=== PATIENT | male | born 1985 | race Caucasian/White ===

== ENCOUNTER → 2024-09-20 | Outpatient (CLI) | payer OTHER, SELFPAY ==
--- OUTSIDE RECORDS SUMMARY | 2024-09-20 06:57 | XMS RPT_ITS | CCD ---
Author Organization [facility] [employer] [facility] Care Team Providers Care Unemployment Specialist Name Role Phone Ramana Ramírez Referring Unavailable Ramana Ramírez Attending Unavailable Problems Problem Classification Problem Date Documented Da te Episodic/Chronic Other lower respiratory disease (1 source) Chest pain on breathing; Translations: [Chest pain on breathing] Onset: 06-07-2024 Episodic Encounters Encounter Date Encounter Type Care Provider Facility Start: 06-02-2024 ambulatory Ramana Ramírez Faci lity:[facility] Payers Date Payer Category Payer Self-pay 2024 Unknown [id number] Unknown [id number] Summary Purpose Family History No Family History Records Found Advance Directives No Advanced Directives Records Found Additional Source Comments (unrecognized sect ion and content) No Status Records Found INFORMATION SOURCE (unrecogn ized section and content) DATE CREATED AUTHOR 06/08/2024 [facility] FOR RECORDS PERTAINING TO PATIENTS WHO ARE OR HAVE BEEN ENROLLED IN A CHEMICAL DEPENDENCY/SUBSTANCEABUSE PROGRAM, SOME INFORMATION MAY BE OMITTED. This clinical summary was aggregated from multiple sources. Caution should be exercised in using it in the provision of clinical care. This summary normalizes information from multiple sources, and as a consequence, information in this document may materially change the coding, format and clinical context of patient data. In addition, data may be omitted in some cases. CLINICAL DECISIONS SHOULD BE BASED ON THE PRIMARY CLINICAL RECORDS. [email or web address] provides no warranty or guarantee of the accuracy or completeness of information in this document.
== END | disposition home or self-care (01) ==
LOC: PSN 06:55
PROVIDERS: PCP Internal Medicine; Referring Provider Chiropractor; Visit Provider Chiropractor
DX: R07.1 Chest pain on breathing (principal)
CPT/HCPCS: 94060; 94726; 94729